=== PATIENT | female | born 1995 | race Caucasian/White ===

== ENCOUNTER → 2022-05-21 | Emergency (ER) | payer SELFPAY ==
[~2022-05-21] VITALS: Ht 152.4 cm; Wt 40.8 kg
[~2022-05-21] MED LIST: CYCL10TA9 PO; HYDR-4209 PO; IBUPROFEN 600 MG TABLET PO ONE; KETOROLAC TROMETHAMINE 30 MG INJ IM ONE; KETOROLAC TROMETHAMINE 30 MG INJ ONE; ONDANSETRON ODT 4 MG TAB.RAPDIS ONE; ONDANSETRON ODT 4 MG TAB.RAPDIS SL ONE
--- NOTE | 2022-05-21 03:30 | NUR ---
Patient walked to ER with steady gait c/o headache, RT sided body ache and vomiting. Patient stated she fell and hit her head 10 hours [employer]. Patient denies LOC. Patient is a/ox4, NAD noted
--- NOTE | 2022-05-21 07:03 | NUR ---
Endorsed to Sherice SHEN
--- NOTE | 2022-05-21 07:20 | NUR ---
Patient discharged to home in stable condition. Written and verbal after care instructions given. Patient verbalizes understanding of instructions. Stressed follow up or return to ER for worsening s/s.
== END | disposition home or self-care (01) ==
LOC: ER 03:11
DX: S09.90XA Unspecified injury of head, initial encounter (principal); M62.830 Muscle spasm of back; M54.2 Cervicalgia; F17.210 Nicotine dependence, cigarettes, uncomplicated; Z79.899 Other long term (current) drug therapy; X58.XXXA Exposure to other specified factors, initial encounter; Y93.89 Activity, other specified; Y92.89 Other specified places as the place of occurrence of the external cause; Y99.8 Other external cause status
CPT/HCPCS: 99285; 70450; 72125; 72128; 96372; J1885; A4663; Q0162